=== PATIENT | female | born 1970 | race African-American/Black ===

== ENCOUNTER 2019-04-08 20:59 | Emergency (ER) | payer OTHER ==
[~2019-04-08] VITALS: Ht 162.6 cm; Wt 65.8 kg
[2019-04-08 21:05] VITALS: BP_SYST 190
--- NOTE | 2019-04-08 21:16 | NUR ---
Patient triaged and placed in waiting room. VSS and patient appears in no acute distress at this time. Accompanied by self, awaiting available bed, and MD notified of need for MSE.
--- NOTE | 2019-04-08 22:23 | NUR ---
Patient to ER bed 8 to gown for evaluation. Side rails up.
--- NOTE | 2019-04-08 22:36 | NUR ---
ER Dr. Morales at bedside examining patient.
[2019-04-08] MEDS ORDERED: AMOXICILLIN/CLAVULANATE POTASSIUM 875 MG TABLET PO ONE (22:45)
[2019-04-08] MEDS ORDERED: BACITRACIN 1 GM OINT TP ONE (22:45)
[2019-04-08] MEDS ORDERED: DIPH-TET-PERTUS Vaccine 0.5 ML VIAL (ADACEL) IM ONE (22:45)
[2019-04-08] MEDS ORDERED: IBUPROFEN 800 MG TABLET PO ONE (23:15)
[2019-04-08] MEDS ORDERED: cloNIDine HCL 0.1 MG TABLET PO ONE (23:30)
[2019-04-09] MEDS ORDERED: hydrALAZINE HCL 20 MG/ML VIAL IVP ONE (00:30)
--- NOTE | 2019-04-09 00:31 | NUR ---
Patient moved to bed 7
--- NOTE | 2019-04-09 00:54 | NUR ---
Blood pressure is currently 176/108.
--- NOTE | 2019-04-09 01:00 | NUR ---
Current blood pressure is 155/95. Dr. Morales aware.
[2019-04-09 01:33] VITALS: BP_SYST 148
--- NOTE | 2019-04-09 01:33 | NUR ---
Patient given written and verbal discharge instructions and verbalizes understanding. ER MD discussed with patient the results and treatment provided. Patient in stable condition. ID arm band removed. IV catheter removed intact and dressing applied, no active bleeding. Rx of Augmentin given. Patient educated on pain management and to follow up with PMD. Pain Scale 0. Opportunity for questions provided and answered. Medication side effect fact sheet provided.
== END 2019-04-09 01:33 | disposition home or self-care (01) ==
LOC: SED 20:59
DX: S61.412A Laceration without foreign body of left hand, initial encounter (principal); I10 Essential (primary) hypertension; Z98.51 Tubal ligation status; W54.0XXA Bitten by dog, initial encounter; Y93.89 Activity, other specified; Y92.89 Other specified places as the place of occurrence of the external cause; Y99.8 Other external cause status
CPT/HCPCS: 90471; 90715; 96374; 99284; J0360